=== PATIENT | male | born 1970 | race Caucasian/White ===

== ENCOUNTER → 2021-04-13 00:17 | Outpatient (CLI) | payer BC, SELFPAY ==
[2021-04-13 18:54] LABS: SARS-CoV-2 RNA PCR Negative
== END ==
PROVIDERS: PCP Internal Medicine; Visit Provider Internal Medicine Gastroenterology
DX: Z01.812 Encounter for preprocedural laboratory examination (principal); Z20.822 Contact with and (suspected) exposure to COVID-19
CPT/HCPCS: C9803; U0003; U0005

== ENCOUNTER 2021-04-16 01:26 | Day surgery (SDC) | payer BC, SELFPAY ==
[2021-03-27 15:00] VITALS: BMI 24.3
[2021-04-16 07:30] VITALS: BP 133/95; PULSE 82; RESP 16; TEMP 35.8; O2SAT 100; BMI 24.1
[2021-04-16] MEDS: LACTATED RINGERS 1,000 ML 150 ML IV CONT (07:39)
--- NOTE | 2021-04-16 07:48 | WPDANESEPPF ---
Anes - Initial Pre Proc Eval Procedure: Operation Date: 04/16/21 08:45 Proposed Procedures p Screening Colonoscopy - Quirino Siu MD Date/Time: 04/16/21 07:48 Surgeon: Quirino Siu MD Pre Op Diagnosis: neoplasm screening Patient Data Age: 51 Gender: M Height: 1.78 m Weight: 76.4 kg Last Vital Signs Temp 35.8 C L 04/16/21 07:30 Pulse 82 04/16/21 07:30 Resp 16 04/16/21 07:30 BP 133/95 H 04/16/21 07:30 Pulse Ox 100 04/16/21 07:30 Allergies Allergy/AdvReac Type Severity Reaction Status Date / Time No Known Drug Allergies Allergy Unknown Unknown Verified 04/16/21 07:28 Home Medications Medication Instructions Recorded Confirmed Type No Home Medications 04/16/21 04/16/21 History Patient hx anesthesia problems: none Family hx anesthesia problems: none Results Review: All pre-operative results and documents have been reviewed as part of the pre-operative evaluation. [facility] Family History Family History (Updated 06/26/16 @ 10:30 by DOCTOR UNKNOWN) Other Family history of malignant neoplasm Social History Social History Smoking status: Never smoker Alcohol intake: current Drinks per week: 12 Alcohol use details: Weekends Substance use: never Substance use type: does not use Living arrangements: with family Spiritual care concerns: No Anes - Eval Final PreProcedure Day of Procedure 04/16/21 07:48 Patient weight: normal Heart: regular rate and rhythm Lungs: clear to auscultation and normal air movement Airway: Mallampati scale class II Neurological: alert and oriented Last oral intake: >/= 8 hours ASA classification: II Emergent: no Anesthetic plan: proceed Anesthesia type and monitoring: general GIVS and standard monitoring Results Review: All pre-operative results and documents have been reviewed as part of the pre-operative evaluation. Informed Consent: The patient's anesthetic plan and its attendant risks and benefits were discussed with the patient/family/POA. Questions were solicited and answers provided to the satisfaction of the patient/family/POA.
--- NOTE | 2021-04-16 07:57 | P.CONGI_ITS ---
Assessment and Plan Assessment and plan (1) Encounter for screening colonoscopy: Code(s): Z12.11 - Encounter for screening for malignant neoplasm of colon Status: Acute Assessment and Plan: Patient presents today for screening colonoscopy. He appears to be at average risk for colon polyps. GI Consult Note Consult date/time: 04/16/21 07:57 HPI: Triston Jolley is a 51 year old male Presents for neoplasia screening. Patient's current weight appetite bowel movements are normal. He denies abdominal pain. He has had no blood in his stools. Family history is noncontributory. Review of Systems Review of Systems: All systems reviewed & are unremarkable except as noted in HPI and below PMFSH Family History Family History (Updated 06/26/16 @ 10:30 by DOCTOR UNKNOWN) Other Family history of malignant neoplasm Social History Social History Smoking status: Never smoker Alcohol intake: current Drinks per week: 12 Alcohol use details: Weekends Substance use: never Substance use type: does not use Living arrangements: with family Spiritual care concerns: No Meds Home Medications and Allergies Home Medications Medication Instructions Recorded Confirmed Type No Home Medications 04/16/21 04/16/21 History Allergies Allergy/AdvReac Type Severity Reaction Status Date / Time No Known Drug Allergies Allergy Unknown Unknown Verified 04/16/21 07:28 Vital Signs Vital Signs - 24 hr 04/16/21 07:30 Temperature 96.5 F L Pulse Rate 82 Respiratory Rate 16 Blood Pressure 133/95 H Pulse Oximetry 100 Exam Narrative: Physical exam reveals patient to be alert. Vital signs stable. HEENT exam is unremarkable. Patient is anicteric. Lungs are clear to au scultation and percussion. Heart is without murmur or extra sounds. Abdominal exam bowel sounds are present soft nontender with no organomegaly. Digital external rectal exam is normal.
[2021-04-16 08:53] VITALS: BP 106/72; PULSE 69; RESP 21; O2SAT 100
[2021-04-16 09:03] VITALS: BP 120/78; PULSE 64; RESP 17; O2SAT 100
[2021-04-16 09:13] VITALS: BP 133/62; PULSE 66; RESP 20; O2SAT 100
== END 2021-04-16 09:48 | disposition home or self-care (01) ==
PROVIDERS: PCP Internal Medicine; Visit Provider Internal Medicine Gastroenterology
PROC: 0DJD8ZZ Inspection of Lower Intestinal Tract, Via Natural or Artificial Opening Endoscopic (ICD-10-PCS; CPT 45378; principal; 2021-04-16 08:45)
DX: Z12.11 Encounter for screening for malignant neoplasm of colon (principal); K64.8 Other hemorrhoids
CPT/HCPCS: 45378; J2704; J7120

== ENCOUNTER 2022-09-05 08:00 | Outpatient (CLI) | payer BC, SELFPAY ==
--- NOTE | ~2022-09-05 | CT_ITS ---
CT of the Abdomen: Indication: Abdominal pain Technique: 2.5 mm axial scans were obtained through the abdomen following intravenous administration of 100 cc of Omnipaque 350. Dose reduction technique was used on this scan by utilizing automated ex posure control and iterative reconstruction technique. The dose-length product (DLP) was 268.91 mGy-c m. Findings: Scans through the lung bases are unremarkable. The liver, spleen, pancreas, gallbladder, adrenals and kidneys are within normal limits. No evidence of aortic aneurysm. No lymphadenopathy. Visualized bowel loops are unremarkable. No ascites. Impression: No significant abnormalities seen. Reviewed, dictated and finalized at location M. Impression: No significant abnormalities seen.
== END 2022-09-05 08:01 | disposition home or self-care (01) ==
PROVIDERS: PCP Internal Medicine; Visit Provider Internal Medicine
DX: R10.9 Unspecified abdominal pain (principal)
CPT/HCPCS: 74160; Q9967